=== PATIENT | female | born 1945 | race Caucasian/White ===

== ENCOUNTER 2021-04-02 11:15 | Outpatient (REF) | payer MEDICARE, OTHER, SELFPAY ==
--- NOTE | ~2021-04-02 | MM_ITS ---
EXAMINATION: MM SCREENING DIGITAL BREAST TOMOSYNTHESIS, BILATERAL CLINICAL INFORMATION: Screening. Asymptomatic. The lifetime risk of breast cancer based on the Tyrer-Cuzick Model is 4%. COMPARISON: Mammography: 02/08/2020, 01/30/2019, 01/24/2018 TECHNIQUE: Digital breast tomosynthesis is performed in both the craniocaudal and mediolateral oblique views along with computer-aided detection (CAD). Synthesized 2D images are generated from the tomosynthesis. FINDINGS: There are scattered areas of fibroglandular density (ACR BI-RADS breast composition Category b). There are no significant masses, abnormal calcifications, or other abnormalities. Parenchymal pattern is similar to prior exams. There is a stable oval parenchymal asymmetry posterior outer right breast on CC view. There are scattered punctate round calcifications. No significant changes. MM/MM tomosynthesis screening BI IMPRESSION: No mammographic evidence of malignancy. ASSESSMENT: BI-RADS 2: Benign RECOMMENDATION: Routine annual mammography screening. This patient's information was entered into a reminder system with a target due date for their next mammogram.
== END 2021-04-02 11:16 | disposition home or self-care (01) ==
LOC: HO.MAMMO 11:15
PROVIDERS: PCP Internal Medicine; Visit Provider Internal Medicine
DX: Z12.31 Encounter for screening mammogram for malignant neoplasm of breast (principal)
CPT/HCPCS: 77063; 77067

== ENCOUNTER 2022-04-09 10:26 | Outpatient (REF) | payer MEDICARE, OTHER, SELFPAY ==
--- NOTE | ~2022-04-09 | MM_ITS ---
EXAMINATION: MM SCREENING DIGITAL BREAST TOMOSYNTHESIS, BILATERAL CLINICAL INFORMATION: Screening. Asymptomatic. The lifetime risk of breast cancer based on the Tyrer-Cuzick Model is 3.7%. COMPARISON: Mammography: April 02, 2021 and studies dating back to January 24, 2016 TECHNIQUE: Digital breast tomosynthesis is performed in both the craniocaudal and mediolateral oblique views along with computer-aided detection (CAD). Synthesized 2D images are generated from the tomosynthesis. FINDINGS: There are scattered areas of fibroglandular density (ACR BI-RADS breast composition Category b). There are no significant masses, abnormal calcifications, or other abnormalities. MM/MM tomosynthesis screening BI IMPRESSION: No significant changes from prior exam. ASSESSMENT: BI-RADS 1: Negative RECOMMENDATION: Routine annual mammography screening. This patient's information was entered into a reminder system with a target due date for their next mammogram.
--- NOTE | ~2022-04-09 | MM_ITS ---
EXAMINATION: BONE DENSITOMETRY CLINICAL INDICATION: Hyperparathyroidism. COMPARISON: Previous BD dated 02/08/2020 and baseline BD dated 07/13/2006, spine and left hip; 02/08/2020, forearm radius 33%. TECHNIQUE: Using a [employer] DXA System (software version: 13.1) manufactured by [employer], dual-energy x-ray absorptiometry was performed of the lumbar spine, left hip and left forearm radius 33%. The images are of good technical quality. Summary results are attached. FINDINGS: AP SPINE L1-L4: Current: BMD 0.874 g/cm2, Z-score -0.7, T-score -2.5, osteoporosis, 3.4% decrease from previous, 22.7% decrease from baseline (<5% change is not significant). Prior: BMD 0.905 g/cm2. Baseline: BMD 1.130 g/cm2. LEFT FEMUR, NECK: Current: BMD 0.737 g/cm2, Z-score -0.2, T-score -2.2, osteopenia. Prior: BMD 0.761 g/cm2. Baseline: BMD 0.912 g/cm2. LEFT FEMUR, TOTAL: Current: BMD 0.771 g/cm2, Z-score -0.1, T-score -1.9, osteopenia, 2.5% decrease from previous, 22.0% decrease from baseline (<5% change is not significant). Prior: BMD 0.791 g/cm2. Baseline: BMD 0.988 g/cm2. LEFT FOREARM RADIUS 33%: BMD 0.705 g/cm2, Z-score 0.3, T-score -2.0, osteopenia, 7.1% decrease from baseline (<5% change is not significant). Baseline: BMD 0.759 g/cm2. IDENTIFIED RISK FACTORS: Osteoporosis, secondary osteoporosis, menopause. HISTORY OF FRACTURE: None listed. MEDICATIONS: Calcium or multivitamin. MM/XR DEXA appendicular skeleton IMPRESSION: 1. DIAGNOSIS: Osteoporosis based on the lowest T-score value of -2.5 in the lumbar spine applying World Health Organization criteria. 2. 10-YEAR FRACTURE RISK PREDICTION, FRAX: According to the guidelines, FRAX calculation should only be performed on patients in the osteopenia bone density category. Therefore, FRAX was not performed on this patient. 3. Treatment Recommendations: NOF guidelines recommend consideration for treatment in postmenopausal women and men age 50 and older presenting with the following: -A hip or vertebral (clinical or morphometric) fracture. -T-score less than or equal to -2.5 at the femoral neck or spine after appropriate evaluation to exclude secondary causes. -Low bone mass at the hip or spine and a 10-year fracture probability by FRAX of greater than or equal to 3% for hip fracture or greater than or equal to 20% for major osteoporotic fracture based on the [place] adapted WHO algorithm. 4. Other Recommendations: All treatment decisions require clinical judgment and consideration of individual patient factors, including patient preferences, comorbidities, previous drug use, risk factors not captured in the FRAX model (e.g. frailty, falls, vitamin D deficiency, increased bone turnover, interval significant decline in bone density) and possible under or overestimation of fracture risk by FRAX. Additional medical evaluation for secondary cause of low bone mineral density may be appropriate. FUTURE SCAN RECOMMENDATION: People with diagnosed cases of osteoporosis or at high risk for fracture should have regular bone mineral density tests. For patients eligible for Medicare, routine testing is allowed once every 2 years. The testing frequency can be increased to one year for patients who have rapidly progressing disease, those who are receiving or discontinuing medical therapy to restore bone mass, or have additional risk factors.
== END 2022-04-09 10:27 | disposition home or self-care (01) ==
LOC: HO.MAMMO 10:26
PROVIDERS: Visit Provider Internal Medicine
DX: Z12.31 Encounter for screening mammogram for malignant neoplasm of breast (principal); M81.0 Age-related osteoporosis without current pathological fracture; E21.3 Hyperparathyroidism, unspecified
CPT/HCPCS: 77063; 77067; 77081

== ENCOUNTER → 2022-11-24 12:42 | Outpatient (REF) | payer MEDICARE, OTHER, SELFPAY ==
--- NOTE | 2022-11-24 12:46 | CA_ITS ---
Transthoracic Echocardiogram Patient (Last, First, Middle): Dee Solis K Gender: Female Date of : 1945 Age: 77 Procedure Date: 11/24/2022 Procedure Type: Transthoracic Echocardiogram Location: [facility] Height: 170.18 cm Weight: 62.6 kg BSA: 1.73 m2 Heart Rate: bpm BP: 130 / 67 mmHg Sub Plant Manager: PRINCESS Referring MD: Juan C Dudley MD Retail Business Development Manager: Live Sellers MD Symptoms: ABNORMAL ECG Study Quality: Fair ECG Rhythm: Sinus Conclusions: - 1. Normal LV systolic function with LVEF of 65-70% with impaired relaxation filling pattern with suggestion of increased filling pressures 2. Mild aortic regurgitation 3. Normal RV systolic pressure 4. Upper limits are normal ascending aortic size at 3.6 cm 5. No gross pericardial effusion Findings Left Ventricle Normal left ventricular size, thickness, and systolic function. The visually estimated ejection fraction is between 65-70%. Spectral Doppler is indicative of an impaired relaxation filling pattern. E/E prime ratio is >15, consistent with elevated filling pressures. Right Ventricle Normal right ventricular cavity size and systolic function. Atria The left atrium is normal in size. There is no evidence of interatrial shunt. The right atrium is normal in size. Aortic Valve There is mild calcification of the aortic valve. There is no aortic valve stenosis. There is mild aortic valve regurgitation. Mitral Valve There is mild anterior and posterior mitral leaflet thickening. There is trace mitral valve regurgitation. There is no mitral valve stenosis. Pulmonic Valve The pulmonic valve is likely normal. Tricuspid Valve Normal tricuspid valve structure. There is trace tricuspid valve regurgitation. The right ventricular systolic pressure is normal. The right ventricular systolic pressure is 24 mmHg. Normal right atrial pressure. There is no evidence of pulmonary hypertension. Great Vessels The pulmonary artery was not well visualized. Venous The inferior vena cava is normal in size and collapses greater than 50% with inspiration. Pericardium/Pleural There is no evidence of pericardial effusion. Prior Study Comparison No significant change noted Measurements 2D Linear Measurements IVSd: 1.01 0.6-0.9/0.6-1.0 cm LVIDd: 4.48 3.9-5.3/4.2-5.9 cm LVIDd Index: 2.59 2.4-3.2/2.2-3.1 cm/m2 LVIDs: 2.97 2.0-3.6 cm LVPWd: 0.99 0.7-1.1 cm LA Diam: 2.10 2.7-3.8/3.0-4.0 cm LAIDs Index: 1.21 1.5-2.3 cm/m2 LV Mass: 189.08 67-162/88-224 g LV Mass Index: 109.29 43-95/49-115 g/m2 LVOT Diam: 2.20 3.0+(-)1.3 cm 2D Systolic Function EF 4C: 65.60 >55% EF 2C: 67.30 >55% EF BiP: 66.30 >55% Mitral Valve MV Pk E: 0.78 MV PK A: 1.17 MV Decel Time: 280.00 E/A: 0.70 E'Lateral: 4.46 E'Medial: 4.13 E/E' Med: 18.80 E/E' Lat: 17.40 PHT: 82.00 MVA PHT: 2.68 Decel [place]: 2.77 Aortic Valve AoV Pk Tommy: 1.37 AoV Mn Tommy: 0.93 AoV VTI: 0.25 AoV Pk Grad: 8.00 Aov Mn Grad: 4.00 NIKOLAY Cont.VTI: 2.25 LVOT LVOT Pk Tommy: 0.82 LVOT Mn Tommy: 0.52 LVOT VTI: 0.15 LVOT Pk Grad: 3.00 LVOT Mn Grad: 1.00 LVOT Diam: 2.20 LVOT Area: 3.80 Diastolic Function MV Pk E: 0.78 MV Pk A: 1.17 E/A: 0.70 E'Medial: 4.13 E/E' Med: 18.80 E' Laterial: 4.46 E/E' Lat: 17.40 Right Ventricle TAPSE (mm): 21.10 TVS' Tommy: 13.40 Tricuspid Valve TR Pk Tommy: 2.28 TR Pk Grad: 21.00 RA Press: 3.00 RVSP: 24.00 Great Vessels Aorta Sinus of Valsalva: 4.19 2.0-3.[address] [place]: 2.89 1.7-3.4 cm Ao Asc: 3.60 2.1-3.4 cm Updated in Other Vendor System with Status of Final Live Sellers MD electronically signed on 11/25/2022 3:09:00 PM with status of Final
== END ==
LOC: HO.CARD 12:42
PROVIDERS: PCP Internal Medicine; Visit Provider Internal Medicine Cardiovascular Disease
DX: R94.31 Abnormal electrocardiogram [ECG] [EKG] (principal)
CPT/HCPCS: 93306

== ENCOUNTER 2023-04-27 11:20 | Outpatient (REF) | payer MEDICARE, OTHER, SELFPAY | END 2023-04-27 11:21 | disposition home or self-care (01) | LOC: HO.MAMMO 11:20 | PROVIDERS: PCP Internal Medicine; Visit Provider Internal Medicine | DX: Z12.31 Encounter for screening mammogram for malignant neoplasm of breast (principal) | CPT/HCPCS: 77063; 77067 ==

== ENCOUNTER → 2023-04-27 11:30 | Outpatient (BNV) | payer MEDICARE, OTHER, SELFPAY | PROVIDERS: PCP Internal Medicine; Visit Provider Radiology Diagnostic Radiology | DX: Z12.31 Encounter for screening mammogram for malignant neoplasm of breast (principal) | CPT/HCPCS: 77063; 77067 ==

== ENCOUNTER 2024-05-09 13:42 | Outpatient (REF) | payer MEDICARE, OTHER, SELFPAY ==
--- NOTE | ~2024-05-09 | MM_ITS ---
EXAMINATION: BONE DENSITOMETRY CLINICAL INDICATION: Age-related osteoporosis. Hyperparathyroidism. COMPARISON: Previous BD dated 04/09/2022 and baseline BD dated 07/13/2006. TECHNIQUE: Using a [employer] DXA System (software version: 13.1) manufactured by [employer], dual-energy x-ray absorptiometry was performed of the lumbar spine, left hip, and left forearm radius 33%. The images are of good technical quality. Summary results are attached. FINDINGS: LEFT FEMUR, NECK: Current: BMD 0.763 g/cm2, Z-score 0.1, T-score -2.0, osteopenia. Prior: BMD 0.737 g/cm2. Baseline: BMD 0.912 g/cm2. LEFT FEMUR, TOTAL: Current: BMD 0.795 g/cm2, Z-score 0.2, T-score -1.7, osteopenia, 3.1% increase from previous, 19.5% decrease from baseline (<5% change is not significant). Prior: BMD 0.771 g/cm2. Baseline: BMD 0.988 g/cm2. AP SPINE L1-L4: Current: BMD 0.886 g/cm2, Z-score -0.5, T-score -2.4, osteopenia, 1.4% increase from previous, 21.6% decrease from baseline (<5% change is not significant). Prior: BMD 0.874 g/cm2. Baseline: BMD 1.130 g/cm2. LEFT FOREARM RADIUS 33%: BMD 0.721 g/cm2, Z-score 0.6, T-score -1.8, osteopenia, 2.3% increase from previous, 5.0% decrease from baseline (<5% change is not significant). Prior: BMD 0.705 g/cm2. Baseline: BMD 0.759 g/cm2. IDENTIFIED RISK FACTORS: Menopause, height loss, osteoporosis, thiazide. HISTORY OF FRACTURE: None listed. MEDICATIONS: Calcium, vitamin D. MM/XR DEXA appendicular skeleton IMPRESSION: 1. DIAGNOSIS: Osteopenia based on the lowest T-score value of -2.4 in the lumbar spine applying World Health Organization criteria. 2. 10-YEAR FRACTURE RISK PREDICTION, FRAX: Major osteoporotic fracture (clinical spine, forearm, hip or shoulder) 12.5%. Hip fracture 3.5%. 3. Treatment Recommendations: NOF guidelines recommend consideration for treatment in postmenopausal women and men age 50 and older presenting with the following: -A hip or vertebral (clinical or morphometric) fracture. -T-score less than or equal to -2.5 at the femoral neck or spine after appropriate evaluation to exclude secondary causes. -Low bone mass at the hip or spine and a 10-year fracture probability by FRAX of greater than or equal to 3% for hip fracture or greater than or equal to 20% for major osteoporotic fracture based on the [place] adapted WHO algorithm. 4. Other Recommendations: All treatment decisions require clinical judgment and consideration of individual patient factors, including patient preferences, comorbidities, previous drug use, risk factors not captured in the FRAX model (e.g. frailty, falls, vitamin D deficiency, increased bone turnover, interval significant decline in bone density) and possible under or overestimation of fracture risk by FRAX. Additional medical evaluation for secondary cause of low bone mineral density may be appropriate. FUTURE SCAN RECOMMENDATION: People with diagnosed cases of osteoporosis or at high risk for fracture should have regular bone mineral density tests. For patients eligible for Medicare, routine testing is allowed once every 2 years. The testing frequency can be increased to one year for patients who have rapidly progressing disease, those who are receiving or discontinuing medical therapy to restore bone mass, or have additional risk factors. Electronically signed by: Amberly Romero MD 05/17/2024 03:42 PM RUSSELL JANG
--- NOTE | ~2024-05-09 | MM_ITS ---
EXAMINATION: MM SCREENING DIGITAL BREAST TOMOSYNTHESIS, BILATERAL CLINICAL INFORMATION: Screening. Asymptomatic. COMPARISON: Mammography: Comparison is made with available priors TECHNIQUE: Digital breast mammography with tomosynthesis is performed in both the craniocaudal and mediolateral oblique views along with computer-aided detection (CAD). FINDINGS: There are scattered areas of fibroglandular density (ACR BI-RADS breast composition Category b). There are no significant masses, abnormal calcifications, or other abnormalities. MM/MM tomosynthesis screening BI IMPRESSION: No mammographic evidence of malignancy. ASSESSMENT: BI-RADS BI-RADS 1 - Negative RECOMMENDATION: Routine annual mammography screening. 1 year F/U This examination should not preclude the clinical evaluation of a suspicious palpable abnormality. This patient's information was entered into a reminder system with a target due date for their next mammogram. Electronically signed by: Katalina Olivares DO 05/18/2024 01:47 PM RUSSELL
== END 2024-05-09 13:43 | disposition home or self-care (01) ==
LOC: HO.MAMMO 13:42
PROVIDERS: PCP Internal Medicine; Visit Provider Internal Medicine
DX: Z12.31 Encounter for screening mammogram for malignant neoplasm of breast (principal); M81.0 Age-related osteoporosis without current pathological fracture; E21.3 Hyperparathyroidism, unspecified
CPT/HCPCS: 77063; 77067; 77081

== ENCOUNTER → 2024-05-09 14:45 | Outpatient (BNV) | payer MEDICARE, OTHER, SELFPAY | PROVIDERS: PCP Internal Medicine; Visit Provider Internal Medicine | DX: Z12.31 Encounter for screening mammogram for malignant neoplasm of breast (principal) | CPT/HCPCS: 77063; 77067 ==

== ENCOUNTER 2025-06-11 11:51 | Outpatient (REF) | payer MEDICARE, OTHER, SELFPAY ==
--- OUTSIDE RECORDS SUMMARY | 2024-10-20 05:00 | XMS_ITS ---
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), Hammertoe Foot Deformity (M20.41,M20.42), Preulcerative Skin Lesion(s) (L85.1 Active Colace bid Not-Taking ASA 1 x a day Not-Taking Ferrous Sulfate Not- Taking Ciclopirox 0.77 % 1 application Externally Twice a day; Duration: 365 days Active Simvastatin 20 MG 1 tablet in the evening Orally Once a day; Duration: 30 day(s) Active Simethicone with meals prn Act sara Citrucel - as directed Orally Active Centrum Silver 50+Women - as directed Orally Active Melatonin 3 MG 1 tablet at bedtime as needed Orally Once a day; Duration: 30 day(s) Active Basaglar KwikPen 1 x a day 28 units Act sara Zolpidem Tartrate 5 MG 1 tablet at bedti me Orally Once a day Active Omeprazole 40 MG 1 capsule 30 minutes before morning meal Orally Once a day; Duration: 30 day(s) Active hydroCHLOROthiazide 25 MG 1 tablet in morning Orally Once a day; Duration: 30 day(s) Active Magnesium 400 MG as directed Orally Active Levothyroxine Sodium 150 MCG 1 tablet in the morning on an empty stomach Orally Once a day; Duration: 30 day(s) Active eliquis Active Encounters Encounter Location Date Provider Diagnosis [facility] [address] [address] 10/20/2024 Nicolasa Villa Plan Of Treatment Next Appt Details Provider Name:Nicolasa dozier, 11/06/2025 11:00:00 AM, [address] [place], [address], Progress Notes * Dee POLLOCK KDOB:1945 (79 yo F)Acc No.[id number]:10/20/2024 Progress Note Patient: Dee EATON Provider: Shen Villa DPM :1945 A ge:79 Y S ex:Female Date:10/20/2024 Address:[address] [place], [place] [id number] Pcp:John Orozco MD Subjective: * Chief Complaints: * [address] Hunter[address] * Medical History: A nemia, Arthritis, Back,Hip,and Knee pain, Cancer, Cataracts, Diabetic, Diverticulosis, Headaches/Migraines, High blood pressure, Keloid/Thick Scar, Reflux ( GERD), Scarlet fever, Thyroid, Warts, Measles, Mumps, Chicken pox, Joint implants/screws. * Medications: T lucianag eliquis , Taking Levothyroxine Sodium 150 MCG Tablet 1 tablet in the morning on an empty stomach Orally Once a day , Taking hydroCHLOROthiazide 25 MG Tablet 1 tablet in the morning Orally Once a day , Taking Omeprazole 40 MG Capsule Delayed Release 1 capsule 30 minutes before morning meal Orally Once a day , Taking Zolpidem Tartrate 5 MG Tablet 1 tablet at bedtime Orally Once a day , Taking Basaglar KwikPen 15 unit 1 x a day , Notes to Pharmacist: 28 units, Taking Magnesium 400 MG Capsule as directed Orally , Taking Melatonin 3 MG Tablet 1 tablet at bedtime as needed Orally Once a day , Taking Centrum Silver 50+Women - Tablet as directed Orally , Taking Citrucel - Powder as directed Orally , Taking Simethicone 240 with meals prn , Taking Simvastatin 20 MG Tablet 1 tablet in the evening Orally Once a day , Taking Extra Depth Orthopedic Shoes (1 Pair) with Customized Heat Molded Multidensity Innersoles (3 Pair) as directed Dx: NIDDM/Polyneuropathy (E11.42), Hammertoe Foot Deformity (M20.41,M20.42), Preulcerative Skin Lesion(s) (L85.1 , Taking Ciclopirox 0.77 % Gel 1 application Externally Twice a day , Not-Taking/PRN Ferrous Sulfate , Not- Taking/PRN ASA 81 mg 1 x a day , Not-Taking/PRN Colace 100 mg bid Objective: * Vitals: Assessment: Plan: * Treatment: * Images: * The named appointment provid er may or may not be the originator of this progress note, and it is not deemed complete until electronically signed by the appointment provider. Sign off status: Pending * Provider: Shen Villa DPM Date: 0 10/20/2024 Generated for Glo menchaca/Lewis/Rasta on: 1 01:57 PM EST
--- OUTSIDE RECORDS SUMMARY | 2025-01-02 08:30 | XMS_ITS ---
Author Organization [facility] louisa Medina Address [address] [place] [address] Care Team Providers Care Account Coordinator Name Role Phone Ernesto HELLER, John Primary Care Provider Nicolasa Walsh [phone] Encounters Encounter Location Date Provider Diagnosis [address] [address] 01/02/2025 Nicolasa Villa Plan Of Treatment Next Appt Details Provider Name:Nicolasa dozier, 11/06/2025 11:00:00 AM, [address] [place], [address], Progress Notes * Dee POLLOCK KDOB:1945 (79 yo F)Acc No.[id number]:01/02/2025 Progress Note Patient: Dee EATON Provider: Shen Villa DPM :1945 A ge:79 Y S ex:Female Date:01/02/2025 Address:[address] [place] [address] [place], [id number] Pcp:John Orozco MD Subjective: * Chief Complaints: * * Medical History: Objective: * Vitals: Assessment: Plan: * Treatment: * Images: * The named appointment provid er may or may not be the originator of this progress note, and it is not deemed complete until electronically signed by the appointment provider. Sign off status: Pending * Provider: Shen Villa, LALO Date: 0 01/02/2025 Generated for Glo menchaca/Lewis/Rasta on: 1 01:57 PM EST
--- OUTSIDE RECORDS SUMMARY | 2025-06-11 13:57 | XMS_ITS | Patient Health Record ---
Author Organization [facility] [place] Address [address] [place] [address] Care Team Providers [employer] Consultant Name Role Phone John Orozco MD Primary Care Provider Nicolasa Walsh Unavailable [phone] Ross Moody Unavailable [phone] Allergies No Known Allergies Reason For Referral No Information Medications Medication SIG (Take, Route, Frequency, Duration) Notes Start Date End Date Status Ferrous Sulfate Not- Taking Zolpidem Tartrate 5 MG 1 tablet at bedti me Orally Once a day Active ASA 1 x a day Not-Taking Basaglar KwikPen 1 x a day 28 units Act sara Colace bid Not-Taking Magnesium 400 MG as directed Orally Active Melatonin 3 MG 1 tablet at bedtime as needed Orally Once a day; Duration: 30 day(s) Active Centrum Silver 50+Women - as directed Orally Active Citrucel - as directed Orally Active Simethicone with meals prn Act sara eliquis Active Simvastatin 20 MG 1 tablet in the evening Orally Once a day; Duration: 30 day(s) Active Levothyroxine Sodium 150 MCG 1 tablet in the morning on an empty stomach Orally Once a day; Duration: 30 day(s) Active Extra Depth Orthopedic Shoes (1 Pair) with Customized Heat Molded Multidensity Innersoles (3 Pair) as directed Dx: NIDDM/Polyneuropath y (E11.42), Hammertoe Foot Deformity (M20.41,M20.42), Preulcerative Skin Lesion(s) (L85.1 Active hydroCHLOROthiazide 25 MG 1 tablet in th e morning Orally Once a day; Duration: 30 day(s) Active Ciclopirox 0.77 % 1 application Externally Twice a day; Duration: 365 days Active Omeprazole 40 MG 1 capsule 30 minutes before morning meal Orally Once a day; Duration: 30 day(s) Active Extra Depth Orthopedic Shoes (1 Pair) with Customized Heat Molded Multidensity Innersoles (3 Pair) as directed Dx: NIDDM/Polyneuropath y (E11.42), Hammertoe Foot Deformity (M20.41,M20.42), Preulcerative Skin Lesion(s) (L85.1 11/03/2024 Active Immunizations Vaccine Route Administration Date Status Comme nts Influenza Unknown 02/17/2019 Administered Influenza Unknown 02/26/2020 Administered Influenza Unknown 04/09/2022 Administered Influenza Unknown 02/12/2023 Administered Social History Tobacco Use: Social History Observation Description Date Details (start date - stop date) Never Smoker NA - NA Tobacco use other than smoking: Question Answer Notes Are you an other tobacco user? No Tobacco Control (Standard) Question Answer Notes Tobacco use: Nonsmoker Additional Findings: Tobacco non-user Current no nsmoker AUDIT-C (Standard) Question Answer Notes Did you have a drink containing alcohol in the p ast year? No Points 0 Interpretation Negative Problems Problem Type SNOMED Code ICD Code Onset Dates Problem Status W/U Status Risk Notes Problem Acquired hammer toe of right foot (2423211647782323 ) Other hammer toe(s) (acquired), right foot (M20.41) Active confirmed Problem Acquired hammer toe of left foot (4532169198506819 ) Other hammer toe(s) (acquired), left foot (M20.42) Active confirmed Problem Polyneuropathy due to type 2 diabetes mellitus (365213023) Type 2 diabetes mellitus with diabetic polyneuropathy (E11.42) Active confirmed Vital Signs Blood pressure diastolic 60 mm Hg 11/03/2024 Height 5 ft 7.5 in in 11/03/2024 Blood pressure systolic 120 mm Hg 11/03/2024 Weight 133 lbs 11/03/2024 BMI 20.52 kg/m2 11/03/2024 Encounters Encounter Location Date Provider Diagnosis [facility] [place] [address] [place] [address] 11/03/2024 Ross Moody Type 2 diabetes mellitus with diabetic polyneuropathy E11.42 ; Other hammer toe(s) (acquired), right foot M20.41 and Other hammer toe(s) (acquired), left foot M20.[address] [facility] [address] 10/23/2024 Nicolasa Daisy [facility] [address] [address] 11/03/2024 Nicolasa Villa [facility] [address] [address] 11/10/2024 [facility] [address] [address] 11/13/2024 Nicolasa Villa Assessments Encounter Date Diagnosis (ICD Code) Assessment Notes Treatment Notes Treatment Clinical Notes Section Notes 11/03/2024 Other hammer toe(s) (acquired), right foot (ICD-10 - M20.41) Patient Educated with: DIABETIC FOOT CARE INSTRUCTIONS. pdf (DIABETIC FOOT CARE INSTRUCTIONS. pdf) 11/03/2024 Type 2 diabetes mellitus with diabetic polyneuropathy (ICD-10 - E11.42) 11/03/2024 Other hammer toe(s) (acquired), left foot (ICD-10 - M20.42) Plan Of Treatment Pending Test Test Name Order Date X ray : Foot, right 3V 11/03/2024 Next Appt Details Provider Name:Nicolasa Jacoby dozier, 11/06/2025 11:00:00 AM, [address] [place] [address], [phone], Insurance Providers Payer Name Payer Address Payer Phone Subscriber Number Group Number Insured Name Patient Relationship to Insured Coverage Start Date Coverage End Date Medicare [facility] [address] [place] [address] [id number] Dee Solis Self - patient is the insured [facility] (Counts [facility]) [address] [place] [address] [id number] Home Solis Spouse - patient is the spouse of the insured Medical (General) History Medical History History ICD Code Anemia Arthritis Back,Hip,and Knee pain Cancer - Pancreatic Cataracts Diabetic Diverticulosis Headaches/Migraines High blood pressure Keloid/Thick Scar Reflux ( GERD) Scarlet fever thyroid Warts Measles Mumps Chicken pox Joint implants/screws Surgical History Surgery Date(Month/Year) 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
== END 2025-06-11 11:52 ==
LOC: HO.MAMMO 11:51
PROVIDERS: PCP Internal Medicine; Visit Provider Internal Medicine
DX: Z12.31 Encounter for screening mammogram for malignant neoplasm of breast (principal)
CPT/HCPCS: 77063; 77067

== ENCOUNTER → 2025-06-11 12:00 | Outpatient (BNV) | payer MEDICARE, OTHER, SELFPAY | PROVIDERS: PCP Internal Medicine; Visit Provider Internal Medicine | DX: Z12.31 Encounter for screening mammogram for malignant neoplasm of breast (principal) | CPT/HCPCS: 77063; 77067 ==